=== PATIENT | female | born 1930 | race Caucasian/White ===

== ENCOUNTER 2016-10-26 19:10 | Inpatient (IN) | payer OTHER ==
[~2016-10-26] VITALS: Ht 172.7 cm; Wt 55.8 kg
--- NOTE | ~2016-10-26 | 2DMMODE ---
[facility] [place] [address] 2 D/M-MODE ECHOCARDIOGRAM Name: ODILON BRUNNER Room #: 429-P [facility] IN .R.#: [id number] Admission: 10/26/16 Attend Phys: Rober Centeno Discharge: 10/27/16 Date of : [birth year] Date of Service: 10/27/16 1052 Report #: [id number] THIS REPORT FOR: //name// Transthoracic Echocardiography Ordering physician: Mary Ellen Diaz Referring physician: Ming Rodriguez Theresa L. Magnetic Prospecting Operator: MARCELLUS Diego Indications/History: Syncope, HTN, Alzheimer's. BP: 128 / HR: 60bpm Height: 67in Weight: 122.7lb 68 Study data: M-mode, complete 2D, complete spectral Doppler, and color Doppler. Location: Bedside. Routine. Image quality was good. 2D measurements Normal Normal LVID ED 38.5mm 36-57 IVS ED 7.6mm 6-11 LVID ES 23.9mm 23-40 LVPW ED 8.3mm 6-11 LA volume 14ml/m2 16-28 AoRoot diam 28.3mm 21-37 index ED LVOT diameter 18-23 Findings: Left ventricle: The cavity size was normal. Wall thickness was normal. Systolic function was normal. The estimated ejection fraction was in the range of 55% to 60%. Wall motion was normal. Right ventricle: The cavity size was normal. Systolic function was normal. Right atrium: The atrium was normal in size. Left atrium: The atrium was normal in size. Volume index: 14ml/m2 (S). Aortic valve: Structurally normal valve. Trileaflet. Doppler: There was no stenosis. No regurgitation. Peak velocity: 128.2cm/s (S). Mitral valve: Structurally normal valve. Doppler: [facility] [address] [place] [address] 2 D/M-MODE ECHOCARDIOGRAM Name: ODILON BRUNNER Room #: 429-P [facility] IN .Jade.#: [id number] Admission: 10/26/16 Attend Phys: Rober Centeno Discharge: 10/27/16 Date of : [birth year] Date of Service: 10/27/16 1052 Report #: [id number] There was no evidence for stenosis. Mild regurgitation. Peak E-wave velocity: 87.5cm/s. Peak gradient: 3.1mm Hg (D). Peak A-wave velocity: 102cm/s. Tricuspid valve: Structurally normal valve. Doppler: There was no evidence for stenosis. No regurgitation. Pulmonic valve: Structurally normal valve. Doppler: There was no evidence for stenosis. No regurgitation. Pericardium: There was no pericardial effusion. Aorta: Aortic root: The aortic root was normal in size. Pulmonary artery: Pressure could not be reliably determined due to minimal or absent tricuspid insufficiency jet, but pulmonary hypertension was not suggested. Diastolic function: Doppler parameters are consistent with abnormal left ventricular relaxation (grade 1 diastolic dysfunction). Systemic veins: Inferior vena cava: The vessel was normal in size; the respirophasic diameter changes were in the normal range (= 50%). Conclusions 1. Left ventricle: Systolic function was normal. The estimated ejection fraction was in the range of 55% to 60%. Wall motion was normal. Doppler parameters are consistent with abnormal left ventricular relaxation (grade 1 diastolic dysfunction). 2. Aortic valve: Structurally normal valve. Trileaflet. There was no stenosis. No regurgitation. 3. Mitral valve: Structurally normal valve. There was no evidence for stenosis. Mild regurgitation. 4. Pericardium, extracardiac: There was no pericardial effusion. <ELECTRONICALLY SIGNED> By: Sreedhar Anaya MD, FAC 10/27/16 1215 1052 14 Sreedhar Anaya MD, FACC /sena
--- NOTE | ~2016-10-26 | EKG ---
[place] [address] [address] [address] ELECTROCARDIOGRAM REPORT Name: ODILON BRUNNER Room #: 429-P ADM IN M.R.#: [id number] Admission: 10/26/16 Attend Phys: Cesario Sorensen MD Discharge: Date of : [birth year] Report #: [id number] THIS REPORT FOR: //name// [facility] ED Test Date: 2016-10-26 Test Time: 19:17:03 Pat Name: ODILON BRUNNER Department: Room: 429 Gender: F Applique Sewer: KKOZ : 1930 Requested By: Raya Aguilar Order Number: [id number] MD: Sreedhar Anaya Measurements Intervals [place] Rate: 56 P: 49 IA: 164 QRS: -7 QRSD: 79 T: 28 QT: 476 QTc: 460 Interpretive Statements Sinus bradycardia Poor septal R-wave progression Compared to ECG 07/20/2016 18:00:00 No significant changes Electronically Signed On 10-27-2016 7:40:54 NEGATIVE DEVELOPER by Sreedhar Anaya [email or web address] <ELECTRONICALLY SIGNED> By: Sreedhar Anaya MD, [facility] 10/27/16 0740 16 16 Sreedhar Anaya MD, [facility] /EPI
[~2016-10-26 19:10] MED LIST: ARICEPT 5 MG TAB5 MG PO; ATIVAN0.5 MG PO; ATIVAN1 MG PO; CIPRO250 M1 PO; CLARITIN10 MG PO; KEFLEX500 MG PO; LEVOTHYROXIN0.025 MG PO; LOPERAMIDE 2 MG2 M1 PO; MIGRAINE RELIE1 EACH PO; REMERON15 MG PO; TENORMIN50 MG PO; TYLENOL325 MG PO
[2016-10-26 19:14] VITALS: BP 123/54
[2016-10-26 19:34] LABS: ABSOLUTE NEUTROPHILS 4.5 thou/uL (1.4-8.2); EOSINOPHILS 1.5 % (0.0-3.0); HEMATOCRIT 33.3 % (37.0-47.0); HEMOGLOBIN 10.9 gm/dL (12.0-15.0); LYMPHOCYTES 36.4 % (24.0-44.0); MCH 28.9 pg (26.0-34.0); MCHC 32.8 % (28.0-37.0); MCV 88.3 fL (80.0-100.0); MONOCYTES 8.3 % (1.0-8.0); PLATELET COUNT 268 thou/uL (150-400); POLYS 52.8 % (36.0-66.0); RBC 3.77 mil/uL (4.20-5.00); RDW 14.8 % (10.5-14.5); WBC 8.5 thou/uL (4.0-11.0)
[2016-10-26 19:37] LABS: MANUAL DIFF NO
[2016-10-26 19:39] LABS: ANION GAP 9 mmol/L (7-16); BUN 23 mg/dL (7-18); CALCIUM 8.7 mg/dL (8.5-10.1); CHLORIDE 102 mmol/L (98-107); CO2 28 mmol/L (21-32); CREATININE 1.3 mg/dL (0.6-1.3); GLUCOSE 120 mg/dL (70-99); POTASSIUM 3.7 mmol/L (3.5-5.1); SODIUM 139 mmol/L (136-145)
[2016-10-26] MEDS ORDERED: NAMENDA 10 MG T10 MG PO (19:40)
[2016-10-26] MEDS ORDERED: ACIDOPHILUS PR1 EAC1 PO (19:42)
[2016-10-26] MEDS ORDERED: SEROQUEL 25 MG25 M1 PO (19:43)
[2016-10-26 19:48] LABS: TROPONIN-I < 0.04 ng/mL (<0.04-0.07)
[2016-10-26 19:50] LABS: URINE BILIRUBIN NEGATIVE (Negative); URINE BLOOD NEGATIVE (Negative); URINE COLOR YELLOW; URINE GLUCOSE-RANDOM* NEGATIVE (Negative); URINE KETONES TRACE (Negative); URINE LEUKOCYTES-REFLEX 1+ (Negative); URINE PROTEIN (DIPSTICK) NEGATIVE (Negative); URINE SPECIFIC GRAVITY 1.025 (1.003-1.035); URINE UROBILINOGEN 0.2 E.U./dl (0.2-1.0)
[2016-10-26 20:02] LABS: CASTS None Seen /LPF (None Seen); CRYSTALS None Seen /LPF (None Seen); SQUAMOUS None Seen /LPF (0-3); URINE RBC None Seen /HPF (0-2); URINE WBC-REFLEX >25 Many /HPF (0-5); WBC CLUMPS Few (None Seen)
[2016-10-26 22:05] VITALS: BP 96/43
[2016-10-26 22:50] VITALS: BP 110/51
[2016-10-27 05:55] VITALS: BP 138/90
[2016-10-27 07:50] VITALS: BP 128/68
[2016-10-27] MEDS ORDERED: CEFTIN 250250 MG/52 PO (10:09)
[2016-10-27] MEDS ORDERED: ASPIR 8181 MG PO (10:09)
[2016-10-27] MEDS ORDERED: TOPROL XL25 MG PO (10:10)
[2016-10-27 11:13] LABS: TSH 1.71 uIU/mL (0.450-4.500)
[2016-10-27 12:42] VITALS: BP 128/68
[2016-10-27 14:00] VITALS: BP 128/68
[2016-10-27 21:07] LABS: GLYCOHEMOGLOBIN (HGB A1C) 4.9 % (4.8-5.6)
== END 2016-10-27 14:46 | disposition home health service (06) | DRG 683 ==
LOC: ER 19:10 → EDBD 19:10 → EROBS 21:33 → 4E 21:33
PROVIDERS: Emergency Medicine; Nurse Practitioner
DX: N17.9 Acute kidney failure, unspecified (principal); N39.0 Urinary tract infection, site not specified; I95.1 Orthostatic hypotension; G30.9 Alzheimer's disease, unspecified; F02.80 Dementia in other diseases classified elsewhere, unspecified severity, without behavioral disturbance, psychotic disturbance, mood disturbance, and anxiety; M19.90 Unspecified osteoarthritis, unspecified site; E03.9 Hypothyroidism, unspecified; E86.0 Dehydration; D64.9 Anemia, unspecified; R73.9 Hyperglycemia, unspecified; I12.9 Hypertensive chronic kidney disease with stage 1 through stage 4 chronic kidney disease, or unspecified chronic kidney disease; N18.3 Chronic kidney disease, stage 3 (moderate); Z79.899 Other long term (current) drug therapy; Z79.82 Long term (current) use of aspirin; Z28.21 Immunization not carried out because of patient refusal
CPT/HCPCS: 10183